=== PATIENT | female | born 1950 | race Caucasian/White ===

== ENCOUNTER 2018-03-28 18:42 | Emergency (ER) | END 2018-03-28 22:20 | disposition home or self-care (01) ==

== ENCOUNTER 2018-09-26 14:36 | Emergency (ER) | END 2018-09-26 20:04 | disposition home or self-care (01) ==

== ENCOUNTER 2019-02-04 12:33 | Emergency (ER) | payer OTHER ==
[~2019-02-04] VITALS: Ht 160 cm; Wt 70.1 kg
[~2019-02-04 12:33] MED LIST: CYCL5TAB PO; IBUP-1542 PO; IBUP-1561 PO; MED4DP PO; NAPR-985 PO; TRAM50TA2 PO
[2019-02-04 12:35] VITALS: BP 162/80; PULSE 87; RESP 18; Ht 160 cm; Wt 70.1 kg
[2019-02-04] MEDS ORDERED: KETOROLAC 30 MG INJ IV STA (13:33)
--- NOTE | 2019-02-04 15:04 | ERD ---
ER Documentation Chief Complaint Chief Complaint right side headache x 5 days HPI 68-year-old female with past medical history of DM, hyperlipidemia, chronic migraines who presents with a 5-day history of right-sided headache. She states headache this time is very much different from her chronic migraines with more intensity. Previously she had light sensitivity with her migraine headaches she denies such with current symptoms. She has not had blurry vision. No reports of dizziness. She denies any other associated symptoms. States she took Tylenol, Excedrin, as well as her typical amitriptyline which did not help much with her symptoms. She otherwise denies chest pain, shortness of breath, nausea vomiting, abdominal pain, urinary symptoms, new medication use. She denies red flag symptoms. ROS All systems reviewed and are negative except as per history of present illness. Medications Home Meds Active Scripts Aspirin/Acetaminophen/Caffeine (Excedrin Migraine Caplet) 1 Each Tablet, 1 EACH PO Q6 for 7 Days, TAB Prov:LLOYD MCCULLOUGH PA-C 02/04/19 Ibuprofen* (Motrin*) 600 Mg Tab, 600 MG PO Q6, #30 TAB Prov:ASHER VALLADARES 09/26/18 Tramadol HCl (Tramadol HCl) 50 Mg Tablet, 50 MG PO Q4 PRN for PAIN, #20 TAB Prov:ASHER VALLADARES 03/28/18 Methylprednisolone* (Medrol* DOSE PACK) 4 Mg/Dose-Pack Tab.ds.pk, 4 MG PO . DIRECTED for 6 Days, PACKET Prov:ASHER VALLADARES 03/28/18 Ibuprofen* (Motrin*) 400 Mg Tab, 400 MG PO Q6, #30 TAB Prov:ASHER VALLADARES 03/28/18 Ibuprofen* (Motrin*) 600 Mg Tab, 600 MG PO Q6H PRN for PAIN AND OR ELEVATED TEM P, #30 TAB Prov:DAKOTA LEMUS PA-C 09/06/16 Ibuprofen* (Motrin*) 600 Mg Tab, 600 MG PO Q6, #20 TAB Prov:MARICARMEN TIM MD 06/03/16 Cyclobenzaprine Hcl* (Cyclobenzaprine Hcl*) 5 Mg Tablet, 5 MG PO Q8H PRN for M USCLE SPASMS, #30 TAB Prov:LILLY IBARRA NP 05/27/15 Naproxen* (Naprosyn*) 500 Mg Tablet, 500 MG PO BID PRN for PAIN AND/OR INFLAMMATION, #30 TAB Prov:LILLY IBARRA DINING HOST 05/27/15 Allergies Allergies: Coded Allergies: No Known Allergy (Unverified , 07/19/14) PMhx/Soc History of Surgery: Yes ( X2) Anesthesia Reaction: No Hx Neurological Disorder: No Hx Respiratory Disorders: No Hx Cardiac Disorders: No Hx Psychiatric Problems: No Hx Miscellaneous Medical Probl: Yes (high cholestrol, DM.) Hx Alcohol Use: No Hx Substance Use: No Hx Tobacco Use: No Smoking Status: Never smoker FmHx Family History: diabetes Physical Exam Vitals Vital Signs Date Temp Pulse Resp B/P (MAP) Pulse Ox O2 O2 Flow FiO2 Time Delivery Rate 02/04/19 98.0 87 18 162/80 98 12:35 (107) Physical Exam I have reviewed the triage vital signs. Const: Well nourished, well developed, appears stated age Eyes: PERRL, no conjunctival injection HENT: NCAT, Neck supple without meningismus CV: RRR, Warm, well-perfused extremities RESP: CTAB, Unlabored respiratory effort GI: soft, non-tender, non-distended, no masses MSK: No gross deformities appreciated Skin: Warm, dry. 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 Sensation and motor function of extr emities grossly intact. smile symmetric, good UE/LE strength bilaterally Psych: Appropriate mood and affect. Results 24 hrs Current Medications Medications Dose Sig/Michelle Start Time Status Last (Trade) Ordered Route PRN Stop Time Admin Dose Reason Admin Ketorolac 30 mg ONCE STAT 02/04/19 DC 02/04/19 Tromethamine IV 13:33 02/04/19 13:43 (Toradol) 13:38 Procedures/MDM This patient presents with a headache most consistent with typical chronic migraine. Differential diagnosis includes migraine versus tension type headache. No headache red flags. Neurologic exam without evidence of meningismus, focal neurologic findings. Presentation not consistent with acute intracranial bleed to include SAH (lack of risk factors, headache history). Presentation not consistent with acute SKIN THERAPIST infection to include meningitis or brain abscess, Temporal arteritis unlikely, as is acute angle closure glaucoma given history and physical findings. Presentation not consistent with other acute, emergent causes of headache at this time. Plan to treat symptomatically with pain medi cation. No indication for imaging/LP at this time. Plan: pain medication, CT brain CT brain without acute findings DISPOSITION PLAN: We discussed follow up with the patient's primary care doctor within 24 to 48 hours. Patient counseled regarding my diagnostic impression and care plan. Prior to discharge all questions answered. Pt agrees with treatment plan and understands strict return precautions. Precautionary instructions provided including instructions to return to the ER if not improving or for any worsening or changing symptoms or concerns. Pain medication Folow up with PMD Departure Diagnosis: Primary Impression: Headache Patient Instructions: Headache, Migraine (Classical) [facility]: [facility] LLOYD MCCULLOUGH PA-C Feb 04, 2019 15:04 ALISHA LEUNG DO Feb 07, 2019 20:18
[2019-02-04] MEDS ORDERED: ASPI1TAB31 PO (15:33)
== END 2019-02-04 15:50 | disposition home or self-care (01) ==
LOC: FTE 12:33
DX: R51 Headache (principal); E11.9 Type 2 diabetes mellitus without complications; Z79.82 Long term (current) use of aspirin
CPT/HCPCS: 70450; 96374; J1885; Z7502

== ENCOUNTER 2019-07-02 12:01 | Emergency (ER) | payer OTHER ==
[~2019-07-02] VITALS: Ht 152.4 cm; Wt 69.6 kg
[~2019-07-02 12:01] MED LIST changes: +ACET325T33 PO; +ASPI1TAB31 PO
[2019-07-02 12:09] VITALS: BP 128/63; PULSE 87; RESP 20; Ht 152.4 cm; Wt 69.6 kg
--- NOTE | 2019-07-02 13:10 | ERD ---
ER Documentation Chief Complaint Chief Complaint R thumb pain d/t injury 15 days ago HPI 68-year-old female, previously healthy, right-handed, presents to the emergency department, complaining of persistent right thumb pain after sustaining an injury approximately 2 weeks ago. The patient reports decreased range of motion and rigidity at the distal interphalangeal location. The patient denies distal weakness, numbness or tingling. ROS All systems reviewed and are negative except as per history of present illness. Medications Home Meds Active Scripts Ibuprofen* (Motrin*) 400 Mg Tab, 400 MG PO Q8, #20 TAB Prov:ARTUR MCKEON MD 07/02/19 Acetaminophen* (Tylenol*) 325 Mg Tablet, 2 TAB PO Q6 PRN for PAIN AND OR ELEVATED TEMP, #20 TAB Prov:ARTUR MCKEON MD 07/02/19 Aspirin/Acetaminophen/Caffeine (Excedrin Migraine Caplet) 1 Each Tablet, 1 EACH PO Q6 for 7 Days, TAB Prov:LLOYD MCCULLOUGH PA-C 02/04/19 Ibuprofen* (Motrin*) 600 Mg Tab, 600 MG PO Q6, #30 TAB Prov:ASHER VALLADARES 09/26/18 Tramadol HCl (Tramadol HCl) 50 Mg Tablet, 50 MG PO Q4 PRN for PAIN, #20 TAB Prov:ASHER VALLADARES 03/28/18 Methylprednisolone* (Medrol* DOSE PACK) 4 Mg/Dose-Pack Tab.ds.pk, 4 MG PO . DIRECTED for 6 Days, PACKET Prov:ASHER VALLADARES 03/28/18 Ibuprofen* (Motrin*) 400 Mg Tab, 400 MG PO Q6, #30 TAB Prov:ASHER VALLADARES 03/28/18 Ibuprofen* (Motrin*) 600 Mg Tab, 600 MG PO Q6H PRN for PAIN AND OR ELEVATED TEMP, #30 TAB Prov:DAKOTA LEMUS PA-C 09/06/16 Ibuprofen* (Motrin*) 600 Mg Tab, 600 MG PO Q6, #20 TAB Prov:MARICARMEN TIM MD 06/03/16 Cyclobenzaprine Hcl* (Cyclobenzaprine Hcl*) 5 Mg Tablet, 5 MG PO Q8H PRN for MUSCLE SPASMS, #30 TAB Prov:LILLY IBARRA NP 05/27/15 Naproxen* (Naprosyn*) 500 Mg Tablet, 500 MG PO BID PRN for PAIN AND/OR INFLAMMATION, #30 TAB Prov:LILLY IBARRA EMILY 05/27/15 Allergies Allergies: Coded Allergies: No Known Allergy (Unverified , 07/19/14) PMhx/Soc History of Surgery: Yes ( X2) Anesthesia Reaction: No Hx Neurological Disorder: No Hx Respiratory Disorders: No Hx Cardiac Disorders: No Hx Psychiatric Problems: No Hx Miscellaneous Medical Probl: Yes (high cholestrol, DM.) Hx Alcohol Use: No Hx Substance Use: No Hx Tobacco Use: No FmHx Family History: diabetes Physical Exam Vitals Vital Signs Date Temp Pulse Resp B/P (MAP) Pulse Ox O2 O2 Flow FiO2 Time Delivery Rate 07/02/19 97.2 87 20 128/63 95 12:09 (84) Physical Exam Const: No acute distress Head: Atraumatic Eyes: Normal Conjunctiva ENT: Normal External Ears, Nose and Mouth. Neck: Full range of motion. No meningismus. Resp: Clear to auscultation bilaterally Cardio: Regular rate and rhythm, no murmurs Abd: Soft, non tender, non distended. Normal bowel sounds Skin: No petechiae or rashes Back: No midline or flank tenderness Ext: Right hand: Thumb with deformity at the distal interphalangeal area, with restricted range of motion for flexion and extension. Capillary refill less than 2 seconds. Normal sensation. No cyanosis, or edema Neur: Awake and alert Psych: Normal Mood and Affect Results 24 hrs Patient: WILBERT DUENAS : 1950 Age: 68 Sex: F MR #: [id number] DOS: 07/02/19 1305 Ordering MD: ARTUR MCKEON MD Location: [facility] Room/Bed: PROCEDURE: XR Hand. CLINICAL INDICATION: Trauma TECHNIQUE: AP oblique and lateral views of the right hand were obtained. COMPARISON: No prior studies are available for comparison. FINDINGS: There is normal mineralization. No acute fracture or dislocation is seen. There are no significant degenerative changes. There is no significant soft tissue swelling. IMPRESSION: Normal x-ray of the right hand x-ray . Procedures/MDM Differential diagnosis considered include but not limited are: sprain/strain, ligament injury, fracture, dislocation, low suspicion for acute infectious process. Soft compartments, neurovascular exam grossly intact. Physical examination and clinical presentation consistent with right thumb sprain. Results and clinical impression discussed with patient who agrees with management. The patient is stable to be treated outpatient and will be dischar ged home with recommendations for ice, rest, NSAIDs 3 times daily for 5 days and close monitoring. The patient was instructed to follow up with the primary care provider in the next 48h. If symptoms persist, worsen or new symptoms develop, then patient s hould return to the ED immediately. Instructions explained and given to patient with acknowledgment and demonstrated understanding. Disclaimer: Inadvertent spelling and grammatical errors are likely due to EHR/dictation software use and do not reflect on the overall quality of patient care. Also, please note that the electronic time recorded on this note does not necessarily reflect the actual time of the patient encounter. Departure Diagnosis: Primary Impression: Finger injury Condition: Stable Patient Instructions: Sprain Finger Additional Instructions: Muchas nitin por [facility] para collier servicio. Esperamos que en collier visita a la anselmo de emergencia collier problema medico haya sido solucionado y que se sienta mucho mejor. Para estar seguros que collier mejoria sigue en proceso, le pedimos el favor de hacer sandie adrián de seguimiento medico con collier doctor primario en los proximos 2-4 gonzáles. Lleve con usted estos documentos y las medicinas recetadas. Si pipe sintomas empeoran, NO SE ESPERE, por favor regrese a anselmo de emergencia INMEDIATAMENTE. En shay que usted no tenga un mdico de atencin primaria: Llame al mdico o clnica comunitaria de referencia que aparece abajo juliano las horas de consultorio para hacer sandie adrián para que le vean. CLINICAS: [facility] [phone] [facility] 865 [phone] [facility] [phone] [facility] [phone] [facility] [phone] [facility] [phone] ARTUR MENDEZ MD Jul 02, 2019 13:10
== END 2019-07-02 14:39 | disposition home or self-care (01) ==
LOC: FTE 12:01
DX: S69.91XA Unspecified injury of right wrist, hand and finger(s), initial encounter (principal); E11.9 Type 2 diabetes mellitus without complications; X58.XXXA Exposure to other specified factors, initial encounter; Y92.9 Unspecified place or not applicable; Z79.82 Long term (current) use of aspirin
CPT/HCPCS: 73130; Z7502